=== PATIENT | female | born 1975 | race African-American/Black ===

== ENCOUNTER 2016-08-09 18:35 | Emergency (ER) | payer BC, OTHER ==
[~2016-08-09] VITALS: Ht 165.1 cm; Wt 75.0 kg
[2016-08-09] MEDS ORDERED: ACETAMINOPHEN 325MG TABLET PO STA (19:15)
[2016-08-09] MEDS ORDERED: SODIUM CHLORIDE 0.9% 1000ML BAG (SEPSIS BOLUS) IV ONE (19:15)
[2016-08-09] MEDS ORDERED: ONDANSETRON HCL 4MG/2ML VIAL IV STA (19:16)
[2016-08-09] MEDS ORDERED: ACETAMINOPHEN 325MG TABLET PO ONE (19:30)
[2016-08-09] MEDS ORDERED: KETOROLAC 30MG/ML VIAL IV ONE (19:30)
[2016-08-09 20:37] LABS: BASOPHILS % 0.7 % (0.0-2.0); DIFFERENTIAL COMMENT 0; EOSINOPHILS % 0.1 % (0.0-5.0); HEMATOCRIT. 34.1 % (36.0-48.0); HEMOGLOBIN. 11.7 g/dL (12.0-16.0); LYMPHOCYTES % 38.8 % (20.0-50.0); MEAN CORPUSCULAR HEMOGLOBIN 28.5 pg (28.0-32.0); MEAN CORPUSCULAR HGB CONC 34.4 g/dL (31.0-37.0); MEAN PLATELET VOLUME 11.1 fl (7.4-10.4); MONOCYTES % 6.9 % (2.0-8.0); NEUTROPHILS % 53.5 % (40.0-76.0); PLATELET 127 x1000/uL (130-400); RED BLOOD CELL COUNT 4.11 mill/uL (4.2-5.4); RED CELL DISTRIBUTION WIDTH 12.2 % (11.6-14.6); WHITE BLOOD COUNT 2.7 x1000/uL (4.5-11.0)
[2016-08-09 20:41] LABS: HCG SCREEN NEGATIVE
[2016-08-09 20:46] LABS: INR 1.5; PROTHROMBIN TIME 15.3 sec
[2016-08-09 21:31] LABS: ALANINE AMINOTRANSFERASE 17 IU/L (13-61); ALBUMIN 3.2 g/dL (3.4-5.0); ANION GAP 17; CALCIUM 8.6 mg/dL (8.5-10.1); CARBON DIOXIDE 21 mEq/L (21-32); CHLORIDE 102 mEq/L (98-107); INDEX HEMOLYSI 1 (1-3); INDEX ICTERIC 1 (1-4); INDEX LIPEMIC 1 (1-3); LIPASE 201 IU/L (73-393); TROPONIN I < 0.02 ng/mL (0.00-0.04); UREA NITROGEN BLOOD 19 mg/dL (7-21); eGFR > 60 mL/min (>60)
[2016-08-09 21:33] LABS: CLARITY URINE CLOUDY (CLEAR); COLOR URINE ORANGE (YELLOW); GLUCOSE URINE NEGATIVE (NEGATIVE); KETONES URINE TRACE (NEGATIVE); LEUKOCYTE ESTERASE URINE 1+ (NEGATIVE); NITRITE URINE NEGATIVE (NEGATIVE); OCCULT BLOOD URINE 3+ (NEGATIVE); PROTEIN URINE 2+ (NEGATIVE); SPECIFIC GRAVITY URINE 1.023 (1.005-1.030)
[2016-08-09] MEDS ORDERED: LEVOFLOXACIN 500MG PREMIX 100 ML IV ONE (22:00)
[2016-08-09] MEDS ORDERED: POTASSIUM CHLORIDE 20MEQ TABLET SR PO ONE (22:00)
[2016-08-09 22:06] LABS: SQUAMOUS EPITHELIAL CELL URINE 2+ /lpf (RARE/1+)
[2016-08-09 22:07] LABS: MUCUS URINE TRACE /lpf (< = 2+); RBC URINE TNTC /hpf (0-2)
[2016-08-09 22:10] LABS: BACTERIA URINE 1+
[2016-08-09 22:55] VITALS: BP 125/88
== END 2016-08-09 23:25 | disposition home or self-care (01) ==
LOC: ER 18:35
DX: N10 Acute pyelonephritis (principal); M32.9 Systemic lupus erythematosus, unspecified; Z88.1 Allergy status to other antibiotic agents; Z88.6 Allergy status to analgesic agent
CPT/HCPCS: 36415; 71010; 74176; 80053; 81001; 83605; 83690; 84484; 84703; 85025; 85610; 85730; 87040; 87086; 87804; 93005; 96361; 96365; 96375; 99285; J1885; J1956; J2405; J7030; Z7610